=== PATIENT | female | born 1970 | race Caucasian/White ===

== ENCOUNTER 2016-09-19 00:41 | Emergency (ER) | payer MEDICAID ==
--- NOTE | ~2016-09-19 | CT2 ---
[facility] A Service of [facility] RADIOLOGY TEXT RESULTS PATIENT: GLENDA BARNES LOCATION: [facility] : 74 UNIT #: [id number] AGE: [address]: Aren Quinn MD SEX: F ORDER DR: [id number] [facility] [address] [place], [place] [address] [id number] E MR#: [id number] Acc #: [id number] NAME: GLENDA BARNES : 1970 SEX: F STUDY DATE/TIME: 09/19/2016 6:07 UNIT: [facility] ROOM: STUDY DESCRIPTION: CT Abd and Pelv W Cont Attending Physician: Aren Quinn M.D. Ordering Physician: Chucho Singer D.O. Primary Care Physician: Primary Care Physician No MEDICAL IMAGING REPORT This report is preliminary unless electronic signature is present EXAM CT abdomen and pelvis 09/19/2016 INDICATION Upper abdominal pain for 1 week. History of pancreatitis. TECHNIQUE Axial images were obtained through the abdomen and pelvis following IV contrast administration. Multiplanar reformats were obtained. This CT examination was performed with one or more of the following radiation dose reduction techniques: automatic exposure control, adjustment of mA and/or kV according to patient size, and iterative reconstruction. No comparison. FINDINGS ABDOMEN: There is some mild atelectasis in both lung bases. Gallbladder surgically absent. No biliary obstruction. There is hepatic steatosis. Solid organs are otherwise normal. More specifically, there is no CT evidence of acute pancreatitis. No adenopathy or free fluid is seen. Unopacified GI tract is normal. PELVIS: The appendix is normal. The remainder of the unopacified GI tract is normal as well. Uterus surgically absent. Urinary bladder is normal. No free fluid is seen. IMPRESSION 1. No acute findings in the abdomen and pelvis. 2. More specifically, no evidence of acute pancreatitis. 3. Hepatic steatosis. 4. Cholecystectomy and hysterectomy. 5. Normal unopacified GI tract, including the appendix. [facility] A Service of [facility] RADIOLOGY TEXT RESULTS PATIENT: GLENDA BARNES LOCATION: [facility] : 74 UNIT #: [id number] AGE: [address]: Aren Quinn MD SEX: F ORDER DR: Dictated by... Wan David Jr., M.D. THIS IS AN ELECTRONICALLY VERIFIED REPORT Wan David Jr., M.D. at 09/19/2016 4:09 PM TYRON/karlie TD: 09/19/2016 09:28 JOB #: [id number] MEDICAL IMAGING REPORT Page 1 of 1 COPY
--- NOTE | ~2016-09-19 | CR72 ---
[facility] A Service of [facility] RADIOLOGY TEXT RESULTS PATIENT: GLENDA BARNES LOCATION: [facility] : 74 UNIT #: [id number] AGE: [address]: Aren Quinn MD SEX: F ORDER DR: [id number] [facility] [address] [place], [place] [address] [id number] E MR#: [id number] #: [id number] NAME: GLENDA BARNES : 1970 SEX: F STUDY DATE/TIME: 09/19/2016 2:36 UNIT: [facility] ROOM: STUDY DESCRIPTION: CR Chest Single View Portable Attending Physician: Aren Quinn M.D. Ordering Physician: Chucho Singer D.O. Primary Care Physician: Primary Care Physician No MEDICAL IMAGING REPORT This report is preliminary unless electronic signature is present EXAM Single view chest INDICATION Chest pain for 1 week. FINDINGS Single portable AP view of the chest without comparison. Heart and mediastinal contours normal. Lungs are clear. No pleural effusion. IMPRESSION No acute cardiopulmonary findings. Dictated by... Kiran Lombardo M.D. THIS IS AN ELECTRONICALLY VERIFIED REPORT Kiran Lombardo M.D. at 09/22/2016 2:13 PM Isha TD: 09/19/2016 08:26 JOB #: [id number] MEDICAL IMAGING REPORT Page 1 of 1 COPY
[2016-09-19 02:52] LABS: BASOPHIL# 0.1 X10e3 (0-0.3); BASOPHIL% 0.5 % (0-2.5); EOSINOPHIL# 0.1 X10e3 (0-0.7); EOSINOPHIL% 1.4 % (0.0-7.0); HEMATOCRIT 40.1 % (35.0-45.0); HEMOGLOBIN 13.4 gm/dL (12.0-16.0); LYMPHOCYTE# 3.7 X10e3 (1.0-3.5); LYMPHOCYTE% 37.2 % (17.0-45.0); MEAN CELL VOLUME 93.9 FL (83-96); MEAN CORPUSCULAR HEMOGLOBIN 31.4 PG (28-34); MEAN CORPUSCULAR HGB CONC 33.4 g/dL (30-36); MEAN PLATELET VOLUME 8.7 FL (6.5-11.5); MONOCYTE# 0.9 X10e3 (0-1.0); MONOCYTE% 8.6 % (3.0-12.0); NEUTROPHIL# 5.2 X10e3 (1.5-7.1); NEUTROPHIL% 52.3 % (40-75); PLATELET COUNT 252 X10e3 (140-420); RED BLOOD COUNT 4.27 X10e (3.90-5.30); RED CELL DISTRIBUTION WIDTH 14.2 % (11.0-15.5); WHITE BLOOD COUNT 9.9 X10e3 (4.0-10.5)
[2016-09-19 03:04] LABS: POC - CKMB 1.2 ng/mL (0.0-7.9); POC - TROPONIN <0.05 ng/mL (<=0.05)
[2016-09-19 03:08] LABS: PARTIAL THROMBOPLASTIN TIME 22.2 SECONDS (23.5-31.3); PROTHROMBIN TIME (PATIENT) 10.6 SECONDS (10.0-11.7)
[2016-09-19 03:16] LABS: DIFF IND NO
[2016-09-19 03:34] LABS: ALBUMIN SERUM 4.2 g/dL (3.5-5.0); BILIRUBIN, DIRECT 0.2 mg/dL (0.0-0.2); BILIRUBIN,INDIRECT 0.6 mg/dL (0.0-0.9); BILIRUBIN,TOTAL 0.8 mg/dL (0.2-2.0); BUN/CREATININE RATIO 13.75; CALCIUM SERUM 9.2 mg/dL (8.4-10.2); CREATININE SERUM 0.8 mg/dL (0.6-1.4); GLOM FILT RATE Estimated 90.4 mL/min (>60); POTASSIUM 4.4 mmol/L (3.5-5.1); PROTEIN TOTAL SERUM 7.6 g/dL (6.0-8.3)
[2016-09-19 04:49] LABS: URINE SOURCE CLEAN CATCH
[2016-09-19 04:53] LABS: URINE APPEARANCE CLEAR; URINE BILIRUBIN NEG (NEG); URINE BLOOD NEG (NEG); URINE COLOR YELLOW; URINE GLUCOSE NEG (NEG); URINE KETONE NEG (NEG); URINE LEUKOCYTE ESTERASE NEG (NEG); URINE NITRATE NEG (NEG); URINE PROTEIN NEG (NEG); URINE SPECIFIC GRAVITY 1.017 (1.003-1.035); URINE UROBILINOGEN 0.2 MG/DL (NEG)
[2016-09-19 04:57] LABS: CULTURE INDICATED? NO
[2016-09-19 08:42] LABS: %MB 1.9 % (0.0-4.0); MB 2.3 ng/ml
== END 2016-09-19 08:54 | disposition home or self-care (01) ==
LOC: CED 00:41
PROVIDERS: Emergency Medicine
DX: R10.9 Unspecified abdominal pain (principal); Z90.710 Acquired absence of both cervix and uterus
CPT/HCPCS: 36415; 71010; 74177; 80048; 80076; 81003; 82550; 82553; 83690; 84484; 85025; 85379; 85610; 85730; 96374; 96375; 96376; 99285; J2270; J2405; Q9967